=== PATIENT | male | born 1970 | race American Indian/Alaskan Native ===

== ENCOUNTER 2019-09-20 07:29 | Day surgery (SDC) | payer BC ==
[2019-09-20] MEDS ORDERED: SODIUM CHLORIDE 0.9% 1000 ML 1,000 ML IV SCH (07:30)
[2019-09-20] MEDS ORDERED: LIDOCAINE MPF (2%) 20 MG/1 ML VIAL 5 ML ONE (08:00)
--- NOTE | 2019-09-20 08:22 | Anesthesia Consultation ---
Anesthesia Consult and Med Hx Date of service: 09/20/19 - Airway Anesthetic Teeth Evaluation: Good ROM Head & Neck: Adequate Mental/Hyoid Distance: Adequate Mallampati Class: Class II Intubation Access Assessment: Probably Good - Pre-Operative Health Status ASA Pre-Surgery Classification: ASA2 Proposed Anesthetic Plan: MAC - Pulmonary Hx Smoking: No Hx Asthma: Yes Hx Respiratory Symptoms: No SOB: No COPD: No Home Oxygen Therapy: No Hx Pneumonia: No Hx Sleep Apnea: No - Cardiovascular System Hx Hypertension: No Hx Coronary Artery Disease: No Hx Heart Attack/AMI: No Hx Angina: No Hx Percutaneous Transluminal Coronary Angioplasty (PTCA): No Hx Cardia Arrhythmia: No Hx Pacemaker: No Hx Internal Defibrillator: No Hx Valvular Heart Disease: No Hx Heart Murmur: No Hx Peripheral Vascular Disease: No - Central Nervous System Hx Neuromuscular Disorder: No Hx Seizures: No CVA: No Hx Back Pain: Yes Hx Psychiatric Problems: No - Gastrointestinal Hx Ulcer: No Hx Gastroesophageal Reflux Disease: Yes - Endocrine Hx Renal Disease: No Hx End Stage Renal Disease: No Hx Cirrhosis: No Hx Liver Disease: No Hx Insulin Dependent Diabetes: No Hx Non-Insulin Dependent Diabetes: No Hx Thyroid Disease: No Hx Hypothyroidism: Yes Hx Hyperthyroidism: No - Hematic Hx Anemia: No Hx Sickle Cell Disease: No - Other Systems Hx Alcohol Use: Yes (occ.) Hx Substance Use: No Hx Cancer: No Hx Obesity: No
--- NOTE | 2019-09-20 08:23 | Anesthesia Day of Surgery ---
Anesthesia Day of Surgery - Day of Surgery Patient Examined: Yes Patient H&P Reviewed: Yes Patient is NPO: Yes
--- NOTE | 2019-09-20 09:34 | History and Physical Report ---
HISTORY OF PRESENT ILLNESS: This is a 49-year-old -[place] gentleman with an underlying history of diarrhea, possible history of colitis and a strong family history of cancer. The patient's mother has colon cancer. He also has an underlying history of hyperlipidemia. He is being assessed for a colonoscopy to be done at [facility] on 09/20/2019. SOCIAL HISTORY: Denies history of smoking, rarely drinks alcohol, no cardiac issues. No flu shots. FAMILY HISTORY: Significant for mother having colon cancer. ALLERGIES: No known allergies. MEDICATIONS: Include cholesterol medication as well as probiotics. He has been noted to be negative for COVID-19. PHYSICAL EXAMINATION: VITAL SIGNS: Temperature is 97.5, blood pressure 142/64, pulse is 55, height is 5 feet 10 inches, and weight is 225 pounds. HEENT: Shows no JVD. LUNGS: Clear to auscultation. CARDIOVASCULAR: Normal. ABDOMEN: Soft. Bowel sounds present. NEUROLOGIC: The patient is otherwise alert and oriented. ASSESSMENT: Diarrhea, colitis, family history of cancer, colon cancer of the mother and hyperlipidemia. PLAN: To do a colonoscopy at [facility] on 09/20/2019. SUPREP to be used as the patient's prep. JOB# [id number] LLUVIA/ALVARO
[2019-09-20] MEDS ORDERED: propofoL 200 MG/20 ML VIAL IV ONE ×2 (10:08)
--- NOTE | 2019-09-20 10:44 | Procedure Note ---
Date of procedure: 09/20/19 Pre-op diagnosis: Colon Polyp Screening/ F/H/O Colon Cancer (mother)/ Diarrhea/ Colitis Post-op diagnosis: other (R/O Ileitis/ R/O Microscopic Colitis/ Two Small Colon Polyps (Rectum and Cecum)/ Minor,Internal Hemorrhoids/ No Diverticular Disease noted) Procedure: Colonoscopy with Biopsy Anesthesia: SINCERE Surgeon: CHRIS JAY Estimated blood loss: minimal Pathology: list Specimen disposition: to lab Condition: stable Disposition: same day (Avoid aspirin and NSAID and anticoagulants for 4 days; otherwise resume home medication. Use OTC antidiarrhea medication. Follow up i n 1 to 2 weeks ([phone]).)
--- NOTE | 2019-09-20 10:49 | Operative Report ---
PROCEDURE: Colonoscopy with biopsy. INDICATIONS: This is a 49-year-old -Citizen Of [place] gentleman with a family history of colon cancer. The patient's mother had colon cancer. He is also lately been complaining of some diarrhea over the last few months. Colonoscopy was done as part of colon polyp screening and also to see if there was any underlying reason for his diarrhea. DESCRIPTION OF PROCEDURE: The procedure was done after getting informed consent with MAC anesthesia. Initial rectal exam was unremarkable. Instrument was passed through the rectum onto the cecum, which was identified by the ileocecal valve and the appendiceal orifice. The terminal ileum was intubated and showed normal mucosa. Visualization was fair to good. There was a very small polyp noted in the cecum that was removed by cold biopsy. Otherwise the cecum, ascending colon, transverse colon, descending colon, and sigmoid showed normal mucosa. Random biopsies were done to rule out for possible microscopic colitis. There was a small polyp noted in the rectum that was also removed by cold biopsy and the rectum showed some minor internal hemorrhoid on the retroverted view. There was minimal bleeding from the biopsy sites. ASSESSMENT: Colon polyp screening, family history of colon cancer, the patient's mother had colon cancer, diarrhea, rule out microscopic colitis, and rule out ileitis. Two small colon polyps noted, one in the rectum and one in the cecum, minor internal hemorrhoids. PLAN: There was minimal bleeding associated with the procedure. No complications associated with the procedure. The patient will be asked to take some antidiarrheal medicine like Imodium A-D, which is an [id number]-vufaomi medicine as needed and avoid aspirin and aspirin-related products for the next 4-5 days. Otherwise, resume home medication. Follow up in the office in 1-2 weeks' time. JOB# [id number] LLUVIA/ALVARO
--- NOTE | 2019-09-20 10:57 | Post Anesthesia Evaluation ---
- Post Anesthesia Evaluation Patient Participated: Yes Airway Patent: Yes Stable Respiratory Function: Yes Nausea/Vomiting: No Temp > 96.8F: Yes Pain Manageable: Yes Adequeate Hydration: Yes Anesthesia Complications: No
[2019-09-20 11:45] VITALS: BP 126/83
== END 2019-09-20 07:30 | disposition home or self-care (01) ==
LOC: GIO 07:29
DX: Z12.11 Encounter for screening for malignant neoplasm of colon (principal); K62.1 Rectal polyp; K63.5 Polyp of colon; E78.00 Pure hypercholesterolemia, unspecified; K21.9 Gastro-esophageal reflux disease without esophagitis; K64.8 Other hemorrhoids; E03.9 Hypothyroidism, unspecified; Z72.89 Other problems related to lifestyle; Z80.0 Family history of malignant neoplasm of digestive organs
CPT/HCPCS: 45380; 88305; J2704; J7030